=== PATIENT | male | born 1985 | race Caucasian/White ===

== ENCOUNTER 2022-10-19 01:35 | Emergency (ER) | payer SELFPAY ==
[~2022-10-19] VITALS: Ht 175.3 cm; Wt 81.6 kg
[2022-10-19 01:47] VITALS: BP 136/71
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
[2022-10-19] MEDS ORDERED: KETO10TA2 PO (01:51)
[2022-10-19] MEDS ORDERED: TDAP [DIPH/PERTUSSIS/TET] 0.5 ML VIAL IM ONE ×2 (01:56→02:00)
--- NOTE | 2022-10-19 02:12 | NUR ---
WOUND CARE DONE
--- NOTE | 2022-10-19 02:13 | NUR ---
Patient discharged to home in stable condition. Written and verbal after care instructions given. Patient verbalizes understanding of instruction.
== END 2022-10-19 02:15 | disposition home or self-care (01) ==
LOC: ER 01:40
DX: S80.812A Abrasion, left lower leg, initial encounter (principal); V89.2XXA Person injured in unspecified motor-vehicle accident, traffic, initial encounter; Y93.89 Activity, other specified; Y92.89 Other specified places as the place of occurrence of the external cause; Y99.8 Other external cause status
CPT/HCPCS: 90715